=== PATIENT | female | born 1980 | race Caucasian/White ===

== ENCOUNTER 2017-09-06 14:21 | Emergency (ER) | payer MEDICAID ==
[2017-09-06] MEDS ORDERED: Ketorolac 60 MG/2 ML SDV IM ONE (15:27)
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
[2017-09-06] MEDS ORDERED: Lactated Ringers 1,000 ML IV ONE (16:31)
[2017-09-06] MEDS ORDERED: diphenhydrAMINE 50 MG/ML SDV IVPUSH ONE (16:32)
[2017-09-06] MEDS ORDERED: Prochlorperazine 10 MG/2 ML SDV IVPUSH ONE (16:32)
[2017-09-06] MEDS ORDERED: LORazepam 2 MG/ML SDV IVPUSH ONE (17:48)
== END 2017-09-06 21:44 | disposition home or self-care (01) ==
LOC: JP.ED 14:21
DX: G43.909 Migraine, unspecified, not intractable, without status migrainosus (principal); F17.210 Nicotine dependence, cigarettes, uncomplicated
CPT/HCPCS: 70450; 96361; 96372; 96374; 96375; 99284; J0780; J1200; J1885; J2060; J7120